=== PATIENT | male | born 2000 | race Asian ===

== ENCOUNTER 2025-03-21 14:19 | Emergency (ER) | payer BC, SELFPAY ==
--- NOTE | 2025-03-21 14:20 | ED.URI ---
HPI - URI/Sore Throat General Chief Complaint: Upper Respiratory Infection Stated Complaint: COUGH/CONGESTION/SORE THROAT Time Seen by Provider: 03/21/25 14:28 Source: patient, RN notes reviewed and old records reviewed Mode of arrival: ambulatory Limitations: no limitations History of Present Illness HPI Narrative: 24-year-old male presents to the [facility] with 10 day history of cough, sore throat for 2-3 days. States that he did take Mucinex 1 time. Denies chest pain, shortness of breath or fevers. Denies any other symptoms. Related Data Allergies Allergy/AdvReac Type Severity Reaction Status Date / Time No Known Allergies Allergy Verified 03/21/25 14:33 Review of Systems Review of Systems: All systems reviewed & are unremarkable except as noted in HPI and below Constitutional: Constitutional: Reports no additional constitutional complaints ENT: Reports as per HPI and Reports sore throat Cardiovascular: Cardiovascular: Reports no additional cardiovascular complaints, Denies chest pain and Denies dyspnea Respiratory: Respiratory: Reports as per HPI, Denies chest congestion, Reports cough and Denies dyspnea Musculoskeletal: Musculoskeletal: Reports no additional musculoskeletal complaints Integumentary/Breasts: Skin/Breast: Reports system reviewed and no additional complaints, except as docu PMFSH Comments At the time of my signature, I reviewed and agree with the nursing past medical, surgical, social, and family history. There is no relevant family history pertinent to the patient complaint. Exam Const: General: cooperative, healthy appearing, comfortable, no acute distress, well developed, alert and well nourished Nutritional Appearance: well nourished Orientation/consciousness: patient oriented x3 Limitations: no limitations HENMT: Head: normal to inspection Ears: hearing grossly normal bilaterally, external ears normal, TM's normal bilaterally, EAC's normal, mastoids normal and no periauricular adenopathy Face/Nose/Sinus: Normal external nose present Mouth: Yes Normal oral and palatal mucosa present, Yes lip normal, Yes tongue normal and Yes moist mucous membranes Throat: posterior oropharynx normal, tonsils normal, uvula midline, postnasal drainage and no uvular edema Eyes: General: appearance normal, both eyes and all related structures Alignment and Position: alignment normal Neck: Neck: normal visual inspection, full ROM, no lymphadenopathy and no meningeal signs Chest: Chest palpation & inspection: normal inspection of the chest Resp: Effort & Inspection: normal respiratory effort and able to speak in complete sentences Auscultation: clear to auscultation bilaterally, no crackles, no rales, no rhonchi and no wheezes Cardio: Rate: regular rate Skin: General skin exam: normal color and no rashes or lesions noted Neuro: General: patient oriented x3, gait normal, moves all extremities and no meningeal signs Cognition (Neuro): normal cognition Speech: normal speech Gait exam (Neuro): Normal gait present Extrem: General: normal to inspection, full ROM, capillary refill normal and normal gait Psych: Appearance: grossly normal and well kempt Mental Status: mental status grossly normal Speech and movement: Normal speech and movement present and Clear speech present Affect: normal affect Attitude: cooperative Course Course Level of Care: Express Care Visit Vital Signs Vital signs: Vital Signs Pulse Oximetry 98 03/21/25 14:30 Oxygen Delivery Room Air 03/21/25 14:30 Temperature 99 F 03/21/25 14:32 Pulse Rate 83 03/21/25 14:32 Respiratory Rate 18 03/21/25 14:32 Blood Pressure 121/71 03/21/25 14:32 Pulse Oximetry 97 03/21/25 14:32 Oxygen Delivery Room Air 03/21/25 14:30 Reviewed MDM - URI/Sore Throat MDM Narrative Medical decision making narrative: Patient sitting in exam room. Patient is nontoxic, vitals stable patient presents with 10 day history of a cough, 2 day history of sore throat. Strep test negative. No acute findings noted on exam. Patient appropriate for outpatient treatment with amoxicillin with close follow-up Discharge instructions reviewed with patient, as well as provided in writing per nursing staff. The instructions also include specific and strict return/GO TO THE ER as well as f/u information. All questions have been answered, and the patient deny any further questions with discharge and discharge plan. Some parts of this dictation were generated by voice recognition software and may contain typographical and/or grammatical inaccuracies. Differential Diagnosis Differential diagnosis: Likely upper respiratory infection, otitis media, sinusitis, viral infection, influenza and pharyngitis Lab Data Labs: Lab Results 03/21/25 Range/Units 14:44 POC Grp A Strep Screen Positive (Negative) Reviewed Critical Care Time Critical Care Time Critical Care Time: No Discharge Plan Discharge Clinical Impression: Strep pharyngitis Patient Disposition: Home Condition: Stable Instructions: Antibiotic Form, Strep Throat (DC) Additional Instructions: After 24-48 hours on antibiotics, Throw the toothbrush away, start using a new one. Please be sure to wash bed linens especially pillow cases. Repeat once you finish the antibiotics. Do not share drinks. Take Motrin 600mg alternating with Tylenol 650mg for pain and fever alternating every 4 hours. Increase fluids, avoid caffeine. Give plenty of water, juice, Gatorade, Pedialyte, ice pops in Jell-O Follow up with Primary provider if not getting better this week For new or worsening symptoms go directly to the emergency room Patient Language: Kyrgyz Prescriptions: New amoxicillin 500 mg tablet 500 mg PO Q12H Qty: 20 0RF Follow-up/Referrals: UNKNOWN,DOCTOR [Non-Staff] Stand Alone Forms: Work/School Release IP Time of Disposition: 14:56
[2025-03-21 14:30] VITALS: O2SAT 98
[2025-03-21 14:32] VITALS: BP 121/71; PULSE 83; RESP 18; TEMP 37.2; O2SAT 97
[2025-03-21 14:46] LABS: EDSTREPNEGPOS1 Positive (Negative)
== END 2025-03-21 15:03 | disposition home or self-care (01) ==
PROVIDERS: Emergency Provider Nurse Practitioner
DX: J02.0 Streptococcal pharyngitis (principal)
CPT/HCPCS: 87880; 99203; G0463

== ENCOUNTER 2025-04-11 16:30 | Emergency (ER) | payer BC, SELFPAY ==
[2025-04-11 16:43] VITALS: BP 116/78; PULSE 62; RESP 16; TEMP 36.6; O2SAT 97
--- NOTE | 2025-04-11 16:52 | ED_ITS ---
HPI - General Adult General Chief complaint: Upper Respiratory Infection Stated complaint: sore throat/cough Time Seen by Provider: 04/11/25 16:45 Source: patient, RN notes reviewed and old records reviewed Mode of arrival: ambulatory Limitations: no limitations History of Present Illness HPI narrative: 24 year old male who presets to express care with complaints of sore throat states that he had strep a few weeks ago and took antibiotic but thinks that it is back. Patient reports that he took all doses of the oral antibiotic and did change his toothbrush after being on oral antibiotic for 48 hours. Patient r eports that throat has been sore for 2 days and he has had some phlegm in his throat which seems to cause an intermittent cough, denies any fevers chills or sweats or any other symptoms, Has taken some Tylenol for his discomfort. MD complaint: sore throat Onset (ago): day(s) (2) Severity: moderate Quality: other (soreness) Treatments prior to arrival: other (Tylenol) Related Data Allergies Allergy/AdvReac Type Severity Reaction Status Date / Time No Known Allergies Allergy Verified 04/11/25 16:40 Review of Systems Review of Systems: CONSTITUTIONAL: Denies malaise, chills, sweats, or fever. EYES: Denies visual changes, redness, or discharge. ENT: Reports rhinorrhea, congestion, no sinus pain, no otalgia and positive for sore throat. CARDIOVASCULAR: Denies chest pain, palpitations, or edema. RESPIRATORY: Reports cough.? Denies dyspnea. GASTROINTESTINAL: Denies abdominal pain, nausea, vomiting, diarrhea SKIN: Denies rash or itching. MUSCULOSKELETAL: Denies myalgia. NEUROLOGIC: Denies headache. All systems reviewed & are unremarkable except as noted in HPI and below [facility] Past Medical History Medical History (Updated 04/11/25 @ 19:03 by Jia Chao NP) Strep throat Social History Social History (Updated 04/11/25 @ 19:04 by Jia Chao NP) Smoking status: Never smoker Alcohol intake: current Alcohol use details: social Substance use type: does not use Gender identity (if verbalized by the patient): Male Comments At time of signature, agree with nursing past medical, surgical, social and f amily history. There is no relevant family history pertinent to the presenting complaint Exam Narrative: GENERAL: Well-appearing, well-nourished, and in no acute distress. HEAD: Normocephalic EYES: PERRLA, conjunctivae clear ENT: Nares clear, turbinates edematous and erythematous, clear discharge. Mucous membranes moist. TM pearly mehta with dull light reflex bilaterally; no tragal tenderness. Oropharynx erythematous without lesions. Tonsils red enlarged and without exudate, no drooling, no hoarseness, no trismus, uvula midline. post nasal drainage present NECK: Supple. No lymphadenopathy CHEST: Clear to auscultation, breath sounds equal. No wheezing, rhonchi, rales, or stridor. No respiratory distress, speaks in full sentences.nonproductive cough SAO2 97% on room air HEART: Regular rate and rhythm. No murmur heard. SKIN: Warm, dry, no rash. NEURO: Alert and oriented x3. PSYCH: Normal mood and affect Course Course Emergency Course: Patient is aware of diagnosis, understands and agrees to treatment plan.? Anticipatory guidance given.? Patient agrees to follow-up as directed and is aware of reasons to seek care at the emergency department. Portions of this record may have been created with voice recognition software Level of Care: Express Care Visit Vital Signs Vital signs: Vital Signs Temperature 36.6 C 04/11/25 16:43 Pulse Rate 62 04/11/25 16:43 Respiratory Rate 16 04/11/25 16:43 Blood Pressure 116/78 04/11/25 16:43 Pulse Oximetry 97 04/11/25 16:43 Temperature 36.6 C 04/11/25 16:43 Pulse Rate 62 04/11/25 16:43 Respiratory Rate 16 04/11/25 16:43 Blood Pressure 116/78 04/11/25 16:43 Pulse Oximetry 97 04/11/25 16:43 Reviewed Medical Decision Making Differential Diagnosis Differential Diagnosis: URI, pharyngitis, strep pharyngitis, viral infection Medical Records Medical records reviewed: Yes I reviewed the external patient's medical records. Vital Signs Vital Signs: Vital Signs Temperature 36.6 C 04/11/25 16:43 Pulse Rate 62 04/11/25 16:43 Respiratory Rate 16 04/11/25 16:43 Blood Pressure 116/78 04/11/25 16:43 Pulse Oximetry 97 04/11/25 16:43 Temperature 36.6 C 04/11/25 16:43 Pulse Rate 62 04/11/25 16:43 Respiratory Rate 16 04/11/25 16:43 Blood Pressure 116/78 04/11/25 16:43 Pulse Oximetry 97 04/11/25 16:43 Lab Data Lab results reviewed: Yes I reviewed the patient's lab results. Lab results narrative: strep screen positive Labs: Lab Results 04/11/25 Range/Units 17:03 POC Grp A Strep Screen Positive (Negative) reviewed Critical Care Time Critical Care Time Critical Care Time: No Discharge Plan Discharge Clinical Impression: Strep throat Patient Disposition: Home Condition: Stable Instructions: Antibiotic Form, Strep Throat (ED) Additional Instructions: You tested positive for Group A strep . Take the entire course of antibiotics. Throw away your current toothbrush and begin using a new toothbrush in 48 hours in order to prevent re-infection. Sanitize all reusable water bottles . Do not share items with others. Salt water gargles may alleviate some of the throat discomfort. You can take Tylenol or ibuprofen per the package instructions for pain/fever. If your symptoms persist, change or worsen significantly before you can contact your personal physician then please, without delay, go to the emergency department for further evaluation. Follow-up with PCP in 7-10 days or sooner if needed recommend taking Probiotic while taking this antibiotic or eating Activia yogurt. Patient Language: Beninese Prescriptions: New amoxicillin-pot clavulanate 875-125 mg tablet 1 tablet PO Q12H Qty: 20 0RF Rx Instructions: take with food Follow-up/Referrals: PHYSICIAN,DENTURE FINISHER [Primary Care Provider, Internal Medicine] Time of Disposition: 17:00 Quality [place] Coma Scale Eyes: Open Verbal: Oriented and Alert Motor: Follows Commands Tyshawn Coma Total Score: 15
[2025-04-11 17:07] LABS: EDSTREPNEGPOS1 Positive (Negative)
== END 2025-04-11 17:06 | disposition home or self-care (01) ==
PROVIDERS: Emergency Provider Registered Nurse
DX: J02.0 Streptococcal pharyngitis (principal)
CPT/HCPCS: 87880; 99213; G0463